=== PATIENT | female | born 1965 | race Caucasian/White ===

== ENCOUNTER 2017-12-01 23:48 | Observation (INO) | payer OTHER ==
[~2017-12-01] VITALS: Ht 170.2 cm; Wt 117.7 kg
[2017-12-02 00:21] LABS: HEMATOCRIT 42.9 % (36.0-46.0); HEMOGLOBIN 14.9 G/DL (11.9-15.5); MCH 29.3 PG (29.0-34.0); MCHC 34.7 G/DL (30.0-36.0); MCV 84.3 FL (83-99); PLATELET COUNT 305 K/uL (156-360); RBC DIS.WIDTH-CV 12.5 % (11.8-14.6); RBC DIS.WIDTH-SD 38.3 % (39-53); RED BLOOD COUNT 5.09 M/uL (3.80-5.20); WHITE BLOOD COUNT 11.1 K/uL (4.1-10.2)
[2017-12-02 00:30] LABS: CHLORIDE 104 mEq/L (99-109); POTASSIUM 3.9 mEq/L (3.7-5.4); SODIUM 139 mEq/L (136-147)
[2017-12-02 00:32] LABS: GLUCOSE 247 mg/dL (70-99)
[2017-12-02 00:36] LABS: CREATININE 1.1 mg/dL (0.6-1.3)
[2017-12-02 00:37] LABS: UREA NITROGEN (BUN) 13 mg/dL (9-23)
[2017-12-02 00:42] LABS: GFR ESTIMATE (CALCULATED) 55 mL/min/; TROP-I INTERPRETATION NEGATIVE; TROPONIN-I < 0.01 ng/mL (0.0-0.30)
[2017-12-02] MEDS ORDERED: FLONASE16 G1 BOTH NARES (01:53)
[2017-12-02] MEDS ORDERED: PATANOL OP100 DROP/5 BOTH EYES (01:53)
[2017-12-02] MEDS ORDERED: ALLEGRA ALLERG180 MG PO (01:53)
[2017-12-02] MEDS ORDERED: XYZAL5 MG PO (01:53)
[2017-12-02] MEDS ORDERED: SYMBICORT60 INHALAT IH (01:53)
[2017-12-02] MEDS ORDERED: ERGOCALCIF50000 UNIT PO (01:54)
[2017-12-02] MEDS ORDERED: MUCINEX DM ER1 EACH PO (01:54)
[2017-12-02] MEDS ORDERED: RETIN-A 0.1%20 GM TP (01:54)
[2017-12-02] MEDS ORDERED: DYAZIDE, MA1 CAPSULE PO (01:55)
[2017-12-02] MEDS ORDERED: NOVOLOG PE100 UNITS/ SC (01:55)
[2017-12-02] MEDS ORDERED: LISINOPRIL10 MG PO (01:55)
[2017-12-02] MEDS ORDERED: CATAPRES0.2 MG PO (01:55)
[2017-12-02] MEDS ORDERED: IBUPROFEN800 MG PO (01:55)
[2017-12-02] MEDS ORDERED: LANTUS 3 M100 UNITS1 SC (01:55)
[2017-12-02] MEDS ORDERED: MUPIROCIN22 GM TP (01:56)
[2017-12-02] MEDS ORDERED: JARDIANCE10 MG PO (01:56)
[2017-12-02] MEDS ORDERED: ADULT ASPIRIN R81 MG PO (01:57)
[2017-12-02] MEDS ORDERED: SINGULAIR10 MG PO (01:57)
[2017-12-02] MEDS ORDERED: PERCOCET 10/1 TABLET PO (01:57)
[2017-12-02] MEDS ORDERED: EPIPEN ADU0.3 MG/0.3 IM (01:57)
[2017-12-02] MEDS ORDERED: SEMPREX D PO (01:57)
[2017-12-02] MEDS ORDERED: BYDUREON P2 MG/0.65 SC (01:57)
[2017-12-02] MEDS ORDERED: AMITRIPTYLINE H50 MG PO (01:58)
[2017-12-02] MEDS ORDERED: VALIUM5 MG PO (01:58)
[2017-12-02] MEDS ORDERED: LYRICA150 MG PO (01:58)
[2017-12-02] MEDS ORDERED: DIABETA5 MG PO (01:58)
[2017-12-02] MEDS ORDERED: PLAQUENIL200 MG PO (01:58)
[2017-12-02 03:52] VITALS: BP 128/66
[2017-12-02 05:40] LABS: TROP-I INTERPRETATION NEGATIVE; TROPONIN-I < 0.01 ng/mL (0.0-0.30)
[2017-12-02 09:05] VITALS: BP 114/79
[2017-12-02 12:10] VITALS: BP 115/57
[2017-12-02 12:16] LABS: TROP-I INTERPRETATION NEGATIVE; TROPONIN-I < 0.01 ng/mL (0.0-0.30)
[2017-12-03 10:20] LABS: HEMOGLOBIN A1c (GLYCOHEMOGLOB) 9.6 % (Below 5.7)
== END 2017-12-02 15:31 | disposition home or self-care (01) ==
LOC: EME 23:48 → EDOF 12-02 01:59 → ENRESERV 12-02 02:05 → 5WEST 12-02 03:21
PROVIDERS: Internal Medicine
DX: R07.89 Other chest pain (principal); I10 Essential (primary) hypertension; E11.40 Type 2 diabetes mellitus with diabetic neuropathy, unspecified; E66.01 Morbid (severe) obesity due to excess calories; Z68.41 Body mass index [BMI] 40.0-44.9, adult; G80.9 Cerebral palsy, unspecified; E87.2 Acidosis; D72.829 Elevated white blood cell count, unspecified; I25.2 Old myocardial infarction; M06.9 Rheumatoid arthritis, unspecified; F32.9 Major depressive disorder, single episode, unspecified; H91.91 Unspecified hearing loss, right ear; Z87.891 Personal history of nicotine dependence; Z82.49 Family history of ischemic heart disease and other diseases of the circulatory system; Z90.49 Acquired absence of other specified parts of digestive tract; Z79.82 Long term (current) use of aspirin; Z79.4 Long term (current) use of insulin; Z88.2 Allergy status to sulfonamides; Z88.5 Allergy status to narcotic agent; Z91.018 Allergy to other foods
CPT/HCPCS: 71046; 71275; 80048; 81003; 82948; 83036; 83605; 84484; 85027; 87040; 93005; 99281; 99285; G0378; J1885; J7030; J7040